=== PATIENT | female | born 1950 | race Caucasian/White ===

== ENCOUNTER 2016-12-12 02:17 | Emergency (ER) | payer MEDICARE, BC ==
[2016-12-12 02:29] VITALS: BP 125/75
--- NOTE | 2016-12-12 03:10 | EDM.PDOC ---
ED HPI GENERAL MEDICAL PROBLEM - General Chief Complaint: Diabetic Complaint Stated Complaint: BLOOD SUGAR HIGH Time Seen by Provider: 12/12/16 02:45 Source of Information: Reports: Patient, RN Notes Reviewed History Limitations: Reports: No Limitations - History of Present Illness INITIAL COMMENTS - FREE TEXT/NARRATIVE: Here with her Chief complaint: High blood sugar HPI 66-year-old female who was diagnosed with diabetes in 2008 has been on the pump for the last one and half years. Last A1c was 7.1%. She was well during the day and at 5 PM she did routine pump change including replacing insolent fringe the tubing and the needle and pineal. Since then her blood sugars been slowly climbing, 218 at 6 PM 395 at 1:24 AM and her last sugar at 2:50 AM was 468. She's had diarrhea 4 episodes a home since 5 PM and at least 2 episodes here in emergency. No nausea or vomiting No fever or chills No cough or cold symptoms. She feels that she's been eating and drinking normally during the day. She feels thirsty right now. Treatments TRAVEL COTA: Reports: Other (see below) Other Treatments TRAVEL COTA: insulin pump - Related Data Allergies Allergy/AdvReac Type Severity Reaction Status Date / Time bupropion [From Zyban] Allergy Wheezing Verified 12/12/16 02:49 clindamycin [From Cleocin] Allergy Wheezing Verified 12/12/16 02:48 erythromycin base Allergy Rash Verified 12/12/16 02:48 lansoprazole [From Prevacid] Allergy Nausea Verified 12/12/16 02:48 Penicillins Allergy Rash Verified 12/12/16 02:48 Sulfa (Sulfonamide Allergy Rash Verified 12/12/16 02:48 Antibiotics) varenicline [From Chantix] Allergy Hives Verified 12/12/16 02:48 Home Meds: Home Meds Aspirin [Halfprin] 81 mg PO DAILY 12/12/16 [History] Calcium Citrate/Vitamin D3 [Calcium Citrate - Vit D Tablet] 1 each PO DAILY [History] Cholecalciferol (Vitamin D3) [Vitamin D3] 1,000 unit PO DAILY 12/12/16 [History] Insulin Aspart [NovoLOG] 100 unit SUBCUT ASDIRECTED 12/12/16 [History] Insulin Aspart [NovoLOG] 100 unit SUBCUT ASDIRECTED 12/12/16 [History] Insulin Glargine,Hum.Rec.Anlog [Lantus Solostar] 100 unit SQ ASDIRECTED [History] L.acidoph,Paracasei, B.lactis [Probiotic] 1 each PO DAILY 12/12/16 [History] Lisinopril [Prinivil] 5 mg PO DAILY 12/12/16 [History] Olopatadine HCl [Patanol] 1 drop EYEBOTH BID 12/12/16 [History] Polyethylene Glycol 3350 [MiraLAX] 17 gm PO DAILY 12/12/16 [History] Ubidecarenone [Coenzyme Q-10] 200 mg PO DAILY 12/12/16 [History] atorvaSTATin [Lipitor] 40 mg PO BEDTIME 12/12/16 [History] metFORMIN [Glucophage] 1,000 mg PO BIDMEALS 12/12/16 [History] Past Medical History HEENT History: Reports: Hard of Hearing, Impaired Vision, Other (See Below) Other HEENT History: Wearing hearing aids. Cardiovascular History: Reports: High Cholesterol, Hypertension Gastrointestinal History: Reports: Other (See Below) Other Gastrointestinal History: Gastroparesis Musculoskeletal History: Reports: Osteoporosis Endocrine/Metabolic History: Reports: Diabetes, Type I, Hypothyroidism, Other ( See Below) Other Endocrine/Metabolic History: On insulin pump Oncologic (Cancer) History: Reports: Breast, Uterine - Infectious Disease History Infectious Disease History: Reports: Chicken Pox - Past Surgical History Cardiovascular Surgical History: Reports: None GI Surgical History: Reports: None Female Surgical History: Reports: Hysterectomy, Mastectomy Oncologic Surgical History: Reports: Mastectomy, Other (See Below) Other Oncologic Surgeries/Procedures: left side breast Social & Family History - Tobacco Use Smoking Status *Q: Current Every Day Smoker Years of Tobacco use: 46 Packs/Tins Daily: 0.5 Second Hand Smoke Exposure: No - Caffeine Use Caffeine Use: Reports: Coffee - Recreational Drug Use Recreational Drug Use: No ED ROS GENERAL - Review of Systems Review Of Systems: See Below Constitutional: Reports: Malaise, Other (First he). Denies: Fever, Chills, Weakness, Decreased Appetite HEENT: Reports: No Symptoms Respiratory: Reports: No Symptoms Cardiovascular: Reports: No Symptoms Endocrine: Reports: High Glucose GI/Abdominal: Reports: Diarrhea. Denies: Abdominal Pain, Nausea, Vomiting : Reports: No Symptoms Musculoskeletal: Reports: No Symptoms Skin: Reports: No Symptoms Neurological: Reports: No Symptoms Psychiatric: Reports: Anxiety Hematologic/Lymphatic: Reports: No Symptoms Immunologic: Reports: No Symptoms ED EXAM GENERAL NO PERIP PULSE - Physical Exam Exam: See Below Exam Limited By: No Limitations General Appearance: Alert, Anxious, Moderate Distress, Other (Will) Eye Exam: Bilateral Eye: Normal Inspection Respiratory/Chest: No Respiratory Distress, No Accessory Muscle Use (I) Cardiovascular: Normal Peripheral Pulses, Regular Rate, Rhythm, Tachycardia Extremities: Normal Inspection Neurological: Alert, Oriented, No Motor/Sensory Deficits Skin Exam: Warm, Dry Lymphatic: No Adenopathy Course - Vital Signs Last Recorded V/S: Last Vital Signs Temp 36.5 C 12/12/16 02:26 Pulse 110 H 12/12/16 02:26 Resp 16 12/12/16 02:26 BP 125/75 12/12/16 02:26 Pulse Ox 98 12/12/16 02:26 - Orders/Labs/Meds Meds: Medications Discontinued Medications Generic Name Dose Route Start Last Admin Trade Name Patricio PRN Reason Stop Dose Admin Insulin Aspart 10 unit 12/12/16 03:43 12/12/16 03:55 Novolog SUBCUT 12/12/16 03:44 10 units ONETIME ONE Administration - Re-Assessments/Exams Free Text/Narrative Re-Assessment/Exam: 12/12/16 03:10 66-year-old female with diabetes experiencing high blood sugars night. This may be do to him problem or due to the fact she has diarrhea which may well be infectious. She has given herself a bolus 3 AM of 5.4 units 12/12/16 03:44 Blood sugar dropped low but it return to 468 The pump has not showing an occlusive pattern Patient states sometimes and use it doesn't work as well as other sites Ordered a dose of 10 units NovoLog subcutaneous now 12/12/16 04:34 Blood sugar remains over 400, her meter compared favorably with our meter She has been drinking water well Options are started IV and give her fluids and insulin that way She would prefer to go home Return to emergency if vomiting or fever Departure - Departure Time of Disposition: 04:31 Disposition: Home, Self-Care 01 Condition: good Clinical Impression: Acute diarrhea, Elevated blood sugar - Discharge Information Instructions: Hyperglycemia Referrals: Jose Thapa MD [Primary Care Provider] - Forms: ED Department Discharge Additional Instructions: continue drinking plenty of fluids to make up for fluids lost because of lack of appetite and some diarrhea You'll need to increase your insulin while you are sick in your blood sugars are high Return to emergency if you start having vomiting, high fever, difficulty walking , or becoming more ill
[2016-12-12] MEDS ORDERED: Insulin Aspart 100 Units/ML 3 ML Pen SUBCUT ONE (03:43)
== END 2016-12-12 04:43 | disposition home or self-care (01) ==
LOC: JP.ED 02:17
DX: E10.9 Type 1 diabetes mellitus without complications (principal); R19.7 Diarrhea, unspecified; E03.9 Hypothyroidism, unspecified; E78.00 Pure hypercholesterolemia, unspecified; F17.210 Nicotine dependence, cigarettes, uncomplicated; Z90.89 Acquired absence of other organs; Z79.4 Long term (current) use of insulin; Z79.899 Other long term (current) drug therapy; Z79.82 Long term (current) use of aspirin; Z79.84 Long term (current) use of oral hypoglycemic drugs; Z88.1 Allergy status to other antibiotic agents; Z88.2 Allergy status to sulfonamides; Z88.0 Allergy status to penicillin; Z88.8 Allergy status to other drugs, medicaments and biological substances
CPT/HCPCS: 82962; 99284; A9270; 99283

== ENCOUNTER 2016-12-13 08:22 | Inpatient (IN) | payer MEDICARE, BC ==
[2016-12-13] MEDS ORDERED: Sodium Chloride 0.9% 10 ML Syringe FLUSH PRN ×2 (09:18→14:47)
[2016-12-13] MEDS ORDERED: Ondansetron 4 MG/2 ML SDV IVPUSH ONE (09:18)
--- NOTE | 2016-12-13 09:26 | EDM.PDOC ---
ED HPI GENERAL MEDICAL PROBLEM - General Chief Complaint: Diabetic Complaint Stated Complaint: BLOOD SUGARS Time Seen by Provider: 12/13/16 09:11 Source of Information: Reports: Patient, RN Notes Reviewed History Limitations: Reports: No Limitations - History of Present Illness INITIAL COMMENTS - FREE TEXT/NARRATIVE: 66-year-old female presents emergency department day complaint of elevated blood sugars and shaky feeling, she has a known history of diabetes mellitus type 1 has had difficulty with controlling blood sugars in the past she states for this particular event has been going on for the last 3 days she is on an insulin pump using a total of 18 units in the pump with 18 units with meals. Last blood sugar was 450 at home she denies any fevers does complain of nausea and vomiting had diarrhea for the past 2 days it seems to have resolved today. No shortness of breath or chest pain no cough Abdominal Pain Score (Numeric/FACES): 3 - Related Data Allergies Allergy/AdvReac Type Severity Reaction Status Date / Time bupropion [From Zyban] Allergy Wheezing Verified 12/13/16 08:40 clindamycin [From Cleocin] Allergy Wheezing Verified 12/13/16 08:40 erythromycin base Allergy Rash Verified 12/13/16 08:40 Penicillins Allergy Rash Verified 12/13/16 08:40 Sulfa (Sulfonamide Allergy Rash Verified 12/13/16 08:40 Antibiotics) varenicline [From Chantix] Allergy Hives Verified 12/13/16 08:40 lansoprazole [From Prevacid] AdvReac Nausea Verified 12/13/16 08:40 Home Meds: Home Meds Aspirin [Halfprin] 81 mg PO DAILY 12/12/16 [History] Cholecalciferol (Vitamin D3) [Vitamin D3] 1,000 unit PO DAILY 12/12/16 [History] Insulin Aspart [NovoLOG] 100 unit SUBCUT ASDIRECTED 12/12/16 [History] Insulin Aspart [NovoLOG] 100 unit SUBCUT ASDIRECTED 12/12/16 [History] Lisinopril [Prinivil] 5 mg PO DAILY 12/12/16 [History] Olopatadine HCl [Patanol] 1 drop EYEBOTH BID 12/12/16 [History] Polyethylene Glycol 3350 [MiraLAX] 17 gm PO DAILY 12/12/16 [History] Ubidecarenone [Coenzyme Q-10] 200 mg PO DAILY 12/12/16 [History] atorvaSTATin [Lipitor] 40 mg PO BEDTIME 12/12/16 [History] metFORMIN [Glucophage] 1,000 mg PO BIDMEALS 12/12/16 [History] Past Medical History HEENT History: Reports: Hard of Hearing, Impaired Vision, Other (See Below) Other HEENT History: Wearing hearing aids. Cardiovascular History: Reports: High Cholesterol, Hypertension Gastrointestinal History: Reports: Other (See Below) Other Gastrointestinal History: Gastroparesis [employer] History: Reports: Musculoskeletal History: Reports: Osteoporosis Endocrine/Metabolic History: Reports: Diabetes, Type I, Hypothyroidism, Other ( See Below) Other Endocrine/Metabolic History: On insulin pump Oncologic (Cancer) History: Reports: Breast, Uterine - Infectious Disease History Infectious Disease History: Reports: Chicken Pox, Measles, Mumps, Shingles - Past Surgical History Cardiovascular Surgical History: Reports: None GI Surgical History: Reports: None Female Surgical History: Reports: Hysterectomy, Mastectomy Oncologic Surgical History: Reports: Mastectomy, Other (See Below) Other Oncologic Surgeries/Procedures: left side breast Social & Family History - Tobacco Use Smoking Status *Q: Current Every Day Smoker Years of Tobacco use: 40 Packs/Tins Daily: 0.5 Used Tobacco, but Quit: No Second Hand Smoke Exposure: No - Caffeine Use Caffeine Use: Reports: Coffee - Recreational Drug Use Recreational Drug Use: No ED ROS GENERAL - Review of Systems Review Of Systems: See Below Constitutional: Denies: Fever, Chills HEENT: Reports: No Symptoms Respiratory: Reports: No Symptoms Cardiovascular: Reports: No Symptoms Endocrine: Reports: High Glucose GI/Abdominal: Reports: Diarrhea, Nausea, Vomiting. Denies: Abdominal Pain : Reports: No Symptoms Musculoskeletal: Reports: No Symptoms Skin: Reports: No Symptoms Neurological: Reports: No Symptoms Psychiatric: Reports: No Symptoms ED EXAM GENERAL NO PERIP PULSE - Physical Exam Exam: See Below Text/Narrative:: General: Female, mild distress, alert and oriented x3 HEENT: head is atraumatic normocephalic, eyes pupils equal round reactive to light, sclera clear no conjunctivitis appreciated. Ears hearing aids in place bilaterally. Nose no septal deviation, nares are clear, no blood present. Mouth mucosa is moist and pink no erythema or exudate noted in soft palate, tongue is midline uvula is midline, dentition is intact. Neck: Supple no thyromegaly no tracheal deviation. Nodes: Cervical nodes subclavicular nodes nontender no palpable lymphadenopathy noted. Lungs: clear to auscultation bilaterally with symmetrical respirations, no adventitious noise appreciated. CV: Regular rate and rhythm S1 and S2 appreciated no murmurs rubs or gallops noted. Abdomen: Soft, nontender, no palpable masses or organomegaly appreciated, no distention no guarding bowel sounds are present, . Neuro: Cranial nerves II through XII grossly intact Skin: Warm and dry, intact Extremities: No lower extremity edema appreciated, . Course - Vital Signs Last Recorded V/S: Last Vital Signs Temp 95.5 F 12/13/16 08:54 Pulse 102 H 12/13/16 08:54 Resp 14 12/13/16 08:54 BP 142/69 H 12/13/16 08:54 Pulse Ox 99 12/13/16 08:54 - Orders/Labs/Meds Orders: Active Orders 24 hr Category Date Time Status Peripheral IV Care [RC] . DIRECTED Care 12/13/16 09:19 Active Chest 2V [CR] Stat Exams 12/13/16 10:33 Ordered CLOSTRIDIUM DIFFICILE BY PCR [RM] Stat Lab 12/13/16 10:33 Uncollected CULTURE BLOOD [BC] Urgent Lab 12/13/16 10:37 Received CULTURE BLOOD [BC] Urgent Lab 12/13/16 10:43 Received UA W/MICROSCOPIC [URIN] Urgent Lab 12/13/16 09:18 Uncollected Insulin Regular, Human [NovoLIN R] 100 unit Med 12/13/16 10:15 Active Sodium Chloride 0.9% [Normal Saline] 100 ml SUBCUT TITRATE Sodium Chloride 0.9% [Normal Saline] 1,000 ml Med 12/13/16 09:30 Active IV ASDIRECTED Sodium Chloride 0.9% [Normal Saline] 1,000 ml Med 12/13/16 10:45 Active IV ASDIRECTED Sodium Chloride 0.9% [Saline Flush] Med 12/13/16 09:18 Active 10 ml FLUSH ASDIRECTED PRN Blood Culture x2 Reflex Set [OM.PC] Urgent Oth 12/13/16 10:33 Ordered ED Antiemetic Medication Reflex [OM.PC] Click to Edit Oth 12/13/16 09:18 Ordered Peripheral IV Insertion Adult [OM.PC] Stat Oth 12/13/16 09:18 Ordered Medication Orders Sodium Chloride (Normal Saline) 1,000 mls @ 999 mls/hr IV ASDIRECTED ALICIA Last Admin: 12/13/16 09:32 Dose: 999 mls/hr Insulin Human Regular 100 unit (/ Sodium Chloride) 101 mls @ 7.07 mls/hr SUBCUT TITRATE ALICIA; 7 UNITS/HR PRN Reason: Protocol Sodium Chloride (Normal Saline) 1,000 mls @ 500 mls/hr IV ASDIRECTED ALICIA Sodium Chloride (Saline Flush) 10 ml FLUSH ASDIRECTED PRN PRN Reason: Keep Vein Open Last Admin: 12/13/16 09:37 Dose: 10 ml Labs: Laboratory Tests 12/13/16 12/13/16 12/13/16 Range/Units 09:20 09:30 09:30 WBC 17.5 H (4.5-11.0) K/uL RBC 4.84 (3.30-5.50) M/uL Hgb 14.2 (12.0-15.0) g/dL Hct 41.2 (36.0-48.0) % MCV 85 (80-98) fL MCH 29 (27-31) pg MCHC 35 (32-36) % Plt Count 404 H (150-400) K/uL Neut % (Auto) 82 H (36-66) % Lymph % (Auto) 12 L (24-44) % [place] % (Auto) 6 (2-6) % Eos % (Auto) 0 L (2-4) % Baso % (Auto) 0 (0-1) % Puncture Site Rt radial ABG pH 7.379 (7.350-7.450) ABG pCO2 21.9 L (35.0-42.0) mmHg ABG pO2 102.0 H (75.0-100.0) mmHg ABG HCO3 12.6 L (22.0-26.0) mmol/L ABG Total CO2 11.2 L (21.0-25.0) mmol/L ABG O2 Saturation 97.9 (95.0-98.0) % ABG O2 Content 18.4 (15.0-23.0) %vol ABG Base Excess -10.4 mm/L ABG Hemoglobin 14.2 (12.0-16.0) g/dL ABG Oxyhemoglobin 91.6 % ABG Carboxyhemoglobin 5.5 H (0.0-1.6) % ABG Methemoglobin 0.9 % Raymond Test Passed O2 Delivery Device Room air Sodium 125 L (140-148) mmol/L Potassium 4.5 (3.6-5.2) mmol/L Chloride 93 L (100-108) mmol/L Carbon Dioxide 15 L (21-32) mmol/L Anion Gap 21.5 H (5.0-14.0) mmol/L BUN 21 H (7-18) mg/dL Creatinine 1.0 (0.6-1.0) mg/dL Est Cr Clr Drug Dosing 39.21 mL/min Estimated GFR (MDRD) 55 L (>60) Glucose 319 H (74-106) mg/dL Lactic Acid (0.4-2.0) mmol/L Calcium 8.4 L (8.5-10.1) mg/dL Total Bilirubin 0.7 (0.2-1.0) mg/dL AST 40 H (15-37) U/L ALT 111 H (12-78) U/L Alkaline Phosphatase 106 (46-116) U/L Total Protein 7.6 (6.4-8.2) g/dL Albumin 3.8 (3.4-5.0) g/dL Globulin 3.8 H (2.3-3.5) g/dL Albumin/Globulin Ratio 1.0 L (1.2-2.2) Lipase (73-393) U/L Ketones (NEGATIVE) 12/13/16 12/13/16 12/13/16 Range/Units 09:30 09:30 09:30 WBC (4.5-11.0) K/uL RBC (3.30-5.50) M/uL Hgb (12.0-15.0) g/dL Hct (36.0-48.0) % MCV (80-98) fL MCH (27-31) pg MCHC (32-36) % Plt Count (150-400) K/uL Neut % (Auto) (36-66) % Lymph % (Auto) (24-44) % [place] % (Auto) (2-6) % Eos % (Auto) (2-4) % Baso % (Auto) (0-1) % Puncture Site ABG pH (7.350-7.450) ABG pCO2 (35.0-42.0) mmHg ABG pO2 (75.0-100.0) mmHg ABG HCO3 (22.0-26.0) mmol/L ABG Total CO2 (21.0-25.0) mmol/L ABG O2 Saturation (95.0-98.0) % ABG O2 Content (15.0-23.0) %vol ABG Base Excess mm/L ABG Hemoglobin (12.0-16.0) g/dL ABG Oxyhemoglobin % ABG Carboxyhemoglobin (0.0-1.6) % ABG Methemoglobin % Raymond Test O2 Delivery Device Sodium (140-148) mmol/L Potassium (3.6-5.2) mmol/L Chloride (100-108) mmol/L Carbon Dioxide (21-32) mmol/L Anion Gap (5.0-14.0) mmol/L BUN (7-18) mg/dL Creatinine (0.6-1.0) mg/dL Est Cr Clr Drug Dosing mL/min Estimated GFR (MDRD) (>60) Glucose (74-106) mg/dL Lactic Acid 1.3 (0.4-2.0) mmol/L Calcium (8.5-10.1) mg/dL Total Bilirubin (0.2-1.0) mg/dL AST (15-37) U/L ALT (12-78) U/L Alkaline Phosphatase (46-116) U/L Total Protein (6.4-8.2) g/dL Albumin (3.4-5.0) g/dL Globulin (2.3-3.5) g/dL Albumin/Globulin Ratio (1.2-2.2) Lipase 199 (73-393) U/L Ketones Small H (NEGATIVE) Meds: Medications Generic Name Dose Route Start Last Admin Trade Name Freq PRN Reason Stop Dose Admin Sodium Chloride 1,000 mls @ 999 mls/hr 12/13/16 09:30 12/13/16 09:32 Normal Saline IV 999 mls/hr ASDIRECTED ALICIA Administration Insulin Human Regular 100 unit 101 mls @ 7.07 mls/hr 12/13/16 10:15 / Sodium Chloride SUBCUT TITRATE [facility] Protocol 7 UNITS/HR Sodium Chloride 1,000 mls @ 500 mls/hr 12/13/16 10:45 Normal Saline IV ASDIRECTED ALICIA Sodium Chloride 10 ml 12/13/16 09:18 12/13/16 09:37 Saline Flush FLUSH 10 ml ASDIRECTED PRN Administration Keep Vein Open Discontinued Medications Generic Name Dose Route Start Last Admin Trade Name Freq PRN Reason Stop Dose Admin Ondansetron HCl 4 mg 12/13/16 09:18 12/13/16 09:33 Zofran IVPUSH 12/13/16 09:19 4 mg ONETIME ONE Administration Departure - Departure Time of Disposition: 10:49 Disposition: Admitted As Inpatient 65 Clinical Impression: Diabetic ketoacidosis associated with type 1 diabetes mellitus Qualifiers: Diabetes mellitus complication detail: without coma Qualified Code(s): E10.10 - Type 1 diabetes mellitus with ketoacidosis without coma - Discharge Information Forms: ED Department Discharge - My Orders Last 24 Hours: My Active Orders 12/13/16 09:18 UA W/MICROSCOPIC [URIN] Urgent Sodium Chloride 0.9% [Saline Flush] 10 ml FLUSH ASDIRECTED PRN ED Antiemetic Medication Reflex [OM.PC] Click to Edit Peripheral IV Insertion Adult [OM.PC] Stat 12/13/16 09:19 Peripheral IV Care [RC] . DIRECTED 12/13/16 09:30 Sodium Chloride 0.9% [Normal Saline] 1,000 ml IV ASDIRECTED 12/13/16 10:15 Insulin Regular, Human [NovoLIN R] 100 unit Sodium Chloride 0.9% [Normal Saline] 100 ml SUBCUT TITRATE 12/13/16 10:33 Chest 2V [CR] Stat CLOSTRIDIUM DIFFICILE BY PCR [RM] Stat Blood Culture x2 Reflex Set [OM.PC] Urgent 12/13/16 10:37 CULTURE BLOOD [BC] Urgent 12/13/16 10:43 CULTURE BLOOD [BC] Urgent 12/13/16 10:45 Sodium Chloride 0.9% [Normal Saline] 1,000 ml IV ASDIRECTED - Assessment/Plan Last 24 Hours: My Active Orders 12/13/16 09:18 UA W/MICROSCOPIC [URIN] Urgent Sodium Chloride 0.9% [Saline Flush] 10 ml FLUSH ASDIRECTED PRN ED Antiemetic Medication Reflex [OM.PC] Click to Edit Peripheral IV Insertion Adult [OM.PC] Stat 12/13/16 09:19 Peripheral IV Care [RC] . DIRECTED 12/13/16 09:30 Sodium Chloride 0.9% [Normal Saline] 1,000 ml IV ASDIRECTED 12/13/16 10:15 Insulin Regular, Human [NovoLIN R] 100 unit Sodium Chloride 0.9% [Normal Saline] 100 ml SUBCUT TITRATE 12/13/16 10:33 Chest 2V [CR] Stat CLOSTRIDIUM DIFFICILE BY PCR [RM] Stat Blood Culture x2 Reflex Set [OM.PC] Urgent 12/13/16 10:37 CULTURE BLOOD [BC] Urgent 12/13/16 10:43 CULTURE BLOOD [BC] Urgent 12/13/16 10:45 Sodium Chloride 0.9% [Normal Saline] 1,000 ml IV ASDIRECTED Plan: Assessment Acuity = acute Site and laterality = diabetic ketoacidosis complicated patient with known history of diabetes mellitus type 1, hypertension, dyslipidemia hypothyroidism Etiology = unclear etiology suspicious for infectious process Manifestations = hyperglycemia, tremors Location of injury = home Lab values = WBC elevated at 17.5 consistent leukocytosis, platelets elevated at 404 consistent with thrombocytosis ABG reveals pH of 7.38 PCO2 21.9 a PO2 of 102 and a bicarbonate of 12.6 consistent with a metabolic acidosis and respiratory alkalosis sodium low at 125 corrected sodium at 129 consistent hyponatremia CO2 low at 15 anion gap elevated at 21.5 glucose elevated at 319 consistent hyperglycemia AST elevated at 40 ALT elevated 111 consistent with elevated liver enzymes positive ketones in the blood, chest x-ray, blood cultures, urine pending Plan Discussed case with hospitalist extraction operator he agreed to come and evaluate the patient ED for admission, she has been given 2 L of fluid started on an insulin drip while in the ED Patient was in agreement with the plan all questions were answered This note was dictated using [employer] voice recognition software please call with any questions.
[2016-12-13] MEDS ORDERED: Sodium Chloride 0.9% 1,000 ML IV SCH ×2 (09:30→10:45)
--- NOTE | 2016-12-13 11:01 | CR ---
Heart size within normal limits. Pulmonary vasculature within normal limits. No focal consolidation. Postsurgical change left axilla.
[2016-12-13] MEDS ORDERED: INSULIN REGULAR IV ONE ×2 (11:51)
[2016-12-13] MEDS ORDERED: SODIUM CHLORIDE 0.9% IV ONE ×2 (11:51)
[2016-12-13] MEDS ORDERED: HUMAN IV ONE ×2 (11:51)
[2016-12-13] MEDS ORDERED: STERILE WATER IV PRN (14:47)
[2016-12-13] MEDS ORDERED: Ondansetron 4 MG/2 ML SDV IV PRN (14:47)
[2016-12-13] MEDS ORDERED: Sodium Chloride 0.9% 2,000 ML IV PRN (14:47)
[2016-12-13] MEDS ORDERED: 50% Dextrose in Water 50 ML Syringe IVPUSH PRN (14:47)
[2016-12-13] MEDS ORDERED: Acetaminophen 325 MG Tab PO PRN (14:47)
[2016-12-13] MEDS ORDERED: Potassium Chloride 10% 20 MEQ/15 ML Soln 15 ML UD Cup PO PRN ×2 (14:47)
[2016-12-13] MEDS ORDERED: POTASSIUM CHLORIDE IV PRN (14:47)
[2016-12-13] MEDS ORDERED: Sodium Phosphate 60 MMOLE in Sodium Chloride 0.9% 250 ML IV PRN (14:47)
[2016-12-13] MEDS ORDERED: oxyCODONE 5 MG Tab PO PRN (14:47)
[2016-12-13] MEDS ORDERED: Magnesium Sulfate/Water 50 ML IV PRN (14:47)
[2016-12-13] MEDS ORDERED: Potassium Chloride 20 MEQ in Premix Bag 1 BAG IV PRN (15:30)
--- NOTE | 2016-12-13 15:38 | PCM.HP ---
H&P History of Present Illness - General Admit Problem/Dx: Admission Diagnosis/Problem Admission Diagnosis/Problem Diabetic ketoacidosis Source of Information: Patient, Family, Provider, RN Notes Reviewed History Limitations: Reports: No Limitations - History of Present Illness Initial Comments - Free Text/Narative: This patient is a 66-year-old woman with a known history of type 1 diabetes mellitus. She currently uses an insulins pump for management of her diabetes and reports a control had been fairly good up until 2 days ago. Over the past 2 days his developed diarrhea associated with nausea and vomiting. She's had 2 episodes of chills but denies any obvious fever. On evaluation emergency room Department white blood cell count is elevated but there is no obvious source of infection identified on evaluation. Glucose levels were elevated in the 300 range and associated with an elevated anion gap and decrease in her CO2 level. She is felt to have early diabetic ketoacidosis and has been started on IV insulin. Abdominal Pain Score (Numeric/FACES): 3 - Related Data Allergies/Adverse Reactions: Allergies Allergy/AdvReac Type Severity Reaction Status Date / Time bupropion [From Zyban] Allergy Wheezing Verified 12/13/16 08:40 clindamycin [From Cleocin] Allergy Wheezing Verified 12/13/16 08:40 erythromycin base Allergy Rash Verified 12/13/16 08:40 Penicillins Allergy Rash Verified 12/13/16 08:40 Sulfa (Sulfonamide Allergy Rash Verified 12/13/16 08:40 Antibiotics) varenicline [From Chantix] Allergy Hives Verified 12/13/16 08:40 lansoprazole [From Prevacid] AdvReac Nausea Verified 12/13/16 08:40 Home Medications: Home Meds Aspirin [Halfprin] 81 mg PO DAILY 12/12/16 [History] Cholecalciferol (Vitamin D3) [Vitamin D3] 1,000 unit PO DAILY 12/12/16 [History] Insulin Aspart [NovoLOG] 100 unit SUBCUT ASDIRECTED 12/12/16 [History] Insulin Aspart [NovoLOG] 100 unit SUBCUT ASDIRECTED 12/12/16 [History] Lisinopril [Prinivil] 5 mg PO DAILY 12/12/16 [History] Olopatadine HCl [Patanol] 1 drop EYEBOTH BID 12/12/16 [History] Polyethylene Glycol 3350 [MiraLAX] 17 gm PO DAILY 12/12/16 [History] Ubidecarenone [Coenzyme Q-10] 200 mg PO DAILY 12/12/16 [History] atorvaSTATin [Lipitor] 40 mg PO BEDTIME 12/12/16 [History] metFORMIN [Glucophage] 1,000 mg PO BIDMEALS 12/12/16 [History] Past Medical History HEENT History: Reports: Hard of Hearing, Impaired Vision, Other (See Below) Other HEENT History: Wearing hearing aids. 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: Musculoskeletal History: Reports: Osteoporosis Endocrine/Metabolic History: Reports: Diabetes, Type I, Hypothyroidism, Other ( See Below) Other Endocrine/Metabolic History: On insulin pump Oncologic (Cancer) History: Reports: Breast, Uterine - Infectious Disease History Infectious Disease History: Reports: Chicken Pox, Measles, Mumps, Shingles - Past Surgical History Cardiovascular Surgical History: Reports: None GI Surgical History: Reports: None Female Surgical History: Reports: Hysterectomy, Mastectomy Oncologic Surgical History: Reports: Mastectomy, Other (See Below) Other Oncologic Surgeries/Procedures: left side breast Social & Family History - Family History Family Medical History: Noncontributory - Tobacco Use Smoking Status *Q: Current Every Day Smoker Years of Tobacco use: 40 Packs/Tins Daily: 0.5 Used Tobacco, but Quit: No Second Hand Smoke Exposure: No - Caffeine Use Caffeine Use: Reports: Coffee - Recreational Drug Use Recreational Drug Use: No H&P Review of Systems - Review of Systems: Review Of Systems: See Below General: Reports: Chills. Denies: Fever, Weakness HEENT: Reports: No Symptoms Pulmonary: Reports: No Symptoms Cardiovascular: Reports: No Symptoms Gastrointestinal: Reports: Diarrhea, Nausea, Vomiting. Denies: Abdominal Pain, Black Stool, Bloody Stool, Constipation, Distension Genitourinary: Reports: No Symptoms Musculoskeletal: Reports: No Symptoms Skin: Reports: No Symptoms Psychiatric: Reports: No Symptoms Neurological: Reports: No Symptoms Hematologic/Lymphatic: Reports: No Symptoms Immunologic: Reports: No Symptoms Exam - Exam Exam: See Below - Vital Signs Vital Signs: Last Vital Signs Temp 98.2 F 12/13/16 12:53 Pulse 89 12/13/16 13:57 Resp 14 12/13/16 13:57 BP 135/60 05/26/17 13:57 Pulse Ox 98 12/13/16 13:57 Weight: 122 lb - Exam Quality Assessment: DVT Prophylaxis General: Alert, Oriented, Cooperative, Mild Distress HEENT: Conjunctiva Clear, EOMI, Hearing Intact, Mucosa Moist & [place], Normal Nasal Septum, Posterior Pharynx Clear, Pupils Equal, Pupils Reactive Neck: Supple, Trachea Midline, +2 Carotid Pulse wo Bruit Lungs: Clear to Auscultation, Normal Respiratory Effort Cardiovascular: Regular Rate, Regular Rhythm, Normal S1, Normal S2. No: Irregular Rhythm, Bradycardia, Tachycardia, Systolic Murmur, Diastolic Murmur Abdomen: Normal Bowel Sounds, Soft. No: Organomegaly, Peritoneal Signs, Distention, Guarding, Rigidity, Rebound, Tenderness Back Exam: Normal Inspection, Full Range of Motion, NT Extremities: 3, Normal Inspection, 10 Skin: Warm, Dry, Intact Neurological: Cranial Nerves Intact, Strength Equal Bilateral, Normal Speech, Normal Tone. No: Focal Deficit Neuro Extensive - Mental Status: Alert, Oriented x3, Normal Mood/Affect, Normal Cognition, Memory Intact - Patient Data Lab Results last 24 hrs: Laboratory Results - last 24 hr 12/13/16 Range/Units 14:47 Sodium 131 L (140-148) mmol/L Potassium 4.9 (3.6-5.2) mmol/L Chloride 100 (100-108) mmol/L Carbon Dioxide 19 L (21-32) mmol/L Anion Gap 16.9 H (5.0-14.0) mmol/L BUN 14 (7-18) mg/dL Creatinine 0.9 (0.6-1.0) mg/dL Est Cr Clr Drug Dosing 43.57 mL/min Estimated GFR (MDRD) > 60 (>60) Glucose 287 H (74-106) mg/dL Calcium 7.3 L (8.5-10.1) mg/dL Phosphorus 2.8 (2.5-4.9) mg/dL Magnesium 1.6 L (1.8-2.4) mg/dL Result Diagrams: 12/13/16 09:30 12/13/16 14:47 *Q Meaningful Use (ADM) - VTE *Q VTE Criteria *Q: - VTE Risk Assess *Q Each Risk Factor Represents 1 Point: None Total Score 1 Point Risk Factors: 0 Each Risk Factor Represents 2 Points: Age 60 - 74 Years, Previous Malignancy Total Score 2 Point Risk Factors: 4 Each Risk Factor Represents 3 Points: None Total Score 3 Point Risk Factors: 0 Each Risk Factor Represents 5 Points: None Total Score 5 Point Risk Factors: 0 Venous Thromboembolism Risk Factor Score *Q: 4 - Stroke *Q Stroke Criteria *Q: - AMI *Q AMI Criteria *Q: Problem List Initiated/Reviewed/Updated: Yes Orders Last 24hrs: Active Orders 24 hr Category Date Time Status Diabetes Education [RC] Click to Edit Care 12/13/16 14:47 Active Intake and Output [RC] QSHIFT Care 12/13/16 14:47 Active Notify Provider Laboratory Res [RC] ASDIRECTED Care 12/13/16 14:47 Active Notify Provider Laboratory Res [RC] ASDIRECTED Care 12/13/16 14:47 Active Notify Provider Laboratory Res [RC] ASDIRECTED Care 12/13/16 14:47 Active Notify Provider Laboratory Res [RC] ASDIRECTED Care 12/13/16 14:47 Active Oxygen Therapy [RC] PRN Care 12/13/16 14:47 Active Peripheral IV Care [RC] . DIRECTED Care 12/13/16 14:47 Active Up With Assistance [RC] ASDIRECTED Care 12/13/16 14:47 Active VTE/DVT Education [RC] Per Unit Routine Care 12/13/16 14:47 Active Vital Signs [RC] Q1H Care 12/13/16 14:47 Active Consult to Diabetic Nurse Specialist [CONS] Urgent Cons 12/13/16 14:47 Active Consistent Carbohydrate Diet [DIET] Diet 12/13/16 Lunch Active BASIC METABOLIC PANEL,BMP [CHEM] AM Lab 12/14/16 05:11 Ordered BASIC METABOLIC PANEL,BMP [CHEM] Q4H Lab 12/13/16 18:47 Ordered BASIC METABOLIC PANEL,BMP [CHEM] Q4H Lab 12/13/16 22:47 Ordered BASIC METABOLIC PANEL,BMP [CHEM] Q4H Lab 12/14/16 02:47 Ordered BASIC METABOLIC PANEL,BMP [CHEM] Q4H Lab 12/14/16 06:47 Ordered BASIC METABOLIC PANEL,BMP [CHEM] Q4H Lab 12/14/16 10:47 Ordered CBC WITH AUTO DIFF [HEME] AM Lab 12/14/16 05:11 Ordered MAGNESIUM [CHEM] Q6H Lab 12/13/16 20:47 Ordered MAGNESIUM [CHEM] [address] 12/14/16 02:47 Ordered MAGNESIUM [CHEM] [facility] 12/14/16 08:47 Ordered PHOSPHORUS [CHEM] [address] 12/13/16 20:47 Ordered PHOSPHORUS [CHEM] [address] 12/14/16 02:47 Ordered PHOSPHORUS [CHEM] [address] 12/14/16 08:47 Ordered POTASSIUM,K [CHEM] [address] 12/13/16 16:47 Ordered POTASSIUM,K [CHEM] [address] 12/13/16 20:47 Ordered POTASSIUM,K [CHEM] [address] 12/14/16 00:47 Ordered POTASSIUM,K [CHEM] [address] 12/14/16 02:47 Ordered POTASSIUM,K [CHEM] [address] 12/14/16 04:47 Ordered POTASSIUM,K [CHEM] [address] 12/14/16 06:47 Ordered POTASSIUM,K [CHEM] [address] 12/14/16 08:47 Ordered POTASSIUM,K [CHEM] [address] 12/14/16 10:47 Ordered POTASSIUM,K [CHEM] [address] 12/14/16 12:47 Ordered Acetaminophen [Tylenol] [facility] 12/13/16 14:47 Active 650 mg PO Q4H PRN Dextrose 5%-0.45% NaCl [Dextrose 5%-1/2 NS] 1,000 ml [facility] 12/13/16 14:47 Active IV .CONTINUOUS Dextrose 50% in Water [facility] 12/13/16 14:47 Active 50 ml IVPUSH ONETIME PRN Enoxaparin [Lovenox] Med 12/13/16 17:00 Active 40 mg SUBCUT Q24H Insulin Regular, Human [NovoLIN R] 100 unit Med 12/13/16 14:47 Active Sodium Chloride 0.9% [Normal Saline] 100 ml IV TITRATE Magnesium Sulfate/Water [Magnesium Sulfate 2 GM in Med 12/13/16 14:47 Active Water 50 ML] 50 ml IV ASDIRECTED Ondansetron [Zofran] Med 12/13/16 14:47 Active 4 mg IV Q4H PRN Potassium Chloride [KCL 20 MEQ in Water 100 ML] 20 meq Med 12/13/16 15:30 Active Premix Bag 1 bag IV ASDIRECTED Potassium Chloride [Potassium Chloride Solution] Med 12/13/16 14:47 Ordered 20 meq PO NOW PRN Potassium Chloride [Potassium Chloride Solution] Med 12/13/16 14:47 Ordered 40 meq PO NOW PRN Potassium Chloride [Potassium Chloride Solution] Med 12/13/16 14:47 Ordered 40 meq PO Q2H PRN Sodium Chloride 0.9% [Normal Saline] 2,000 ml Med 12/13/16 14:47 Ordered IV .CONTINUOUS Sodium Chloride 0.9% [Saline Flush] Med 12/13/16 14:47 Active 10 ml FLUSH ASDIRECTED PRN Sodium Phosphate 60 mmole Med 12/13/16 14:47 Ordered Sodium Chloride 0.9% [Normal Saline] 250 ml IV ONETIME atorvaSTATin [Lipitor] Med 12/13/16 21:00 Active 40 mg PO BEDTIME oxyCODONE Med 12/13/16 14:47 Active 5 mg PO Q4H PRN Medication Continuation Instructions [OM.PC] ASDIRECTED Oth 12/13/16 14:47 Ordered Peripheral IV Insertion Adult [OM.PC] Routine Oth 12/13/16 14:47 Ordered Resuscitation Status Routine Resus Stat 12/13/16 14:15 Ordered Medication Orders Acetaminophen (Tylenol) 650 mg PO Q4H PRN PRN Reason: Pain (Mild 1-3)/fever Aspirin (Halfprin) 81 mg PO DAILY [facility] Atorvastatin Calcium (Lipitor) 40 mg PO BEDTIME [facility] Dextrose/Water (Dextrose 50% In Water) 50 ml IVPUSH ONETIME PRN PRN Reason: Blood Glucose Enoxaparin Sodium (Lovenox) 40 mg SUBCUT Q24H [facility] Dextrose/Sodium Chloride (Dextrose 5%-1/2 Ns) 1,000 mls @ 150 mls/hr IV .CONTINUOUS PRN PRN Reason: Blood Glucose Insulin Human Regular 100 unit (/ Sodium Chloride) 101 mls @ 5.55 mls/hr IV TITRATE ALICIA; 0.1 UNIT/KG/HR PRN Reason: Protocol Magnesium Sulfate (Magnesium Sulfate 2 Gm In Water 50 Ml) 50 mls @ 25 mls/hr IV ASDIRECTED PRN PRN Reason: low magnesium Sodium Chloride (Normal Saline) 2,000 mls @ 500 mls/hr IV .CONTINUOUS PRN PRN Reason: Blood Glucose Sodium Phosphate 60 mmole/ (Sodium Chloride) 270 mls @ 62.5 mls/hr IV ONETIME PRN PRN Reason: Low phophorus Potassium Chloride 20 meq/ (Premix) 100 mls @ 50 mls/hr IV ASDIRECTED PRN PRN Reason: HYPOKALEMIA Lisinopril (Prinivil) 5 mg PO DAILY [facility] Olopatadine HCl (Patanol 0.1% Ophth Soln) ml EYEBOTH BID [facility] Ondansetron HCl (Zofran) 4 mg IV Q4H PRN PRN Reason: Nausea/Vomiting Oxycodone HCl (Oxycodone) 5 mg PO Q4H PRN PRN Reason: Pain (moderate 4-6) Potassium Chloride (Potassium Chloride Solution) 20 meq PO NOW PRN PRN Reason: Hypokalemia Potassium Chloride (Potassium Chloride Solution) 40 meq PO NOW PRN PRN Reason: Hypokalemia Potassium Chloride (Potassium Chloride Solution) 40 meq PO Q2H PRN PRN Reason: Hypokalemia Stop: 12/13/16 16:48 Sodium Chloride (Saline Flush) 10 ml FLUSH ASDIRECTED PRN PRN Reason: Keep Vein Open Assessment/Plan Comment:: ASSESSMENT AND PLAN EARLY DIABETIC KETOACIDOSIS-she's had nausea vomiting with diarrhea over the past 2 days, likely secondary to viral gastroenteritis. No other evidence of underlying infection has been identified thus far. -IV insulins per ketoacidosis protocol -IV fluids and electrolyte management per protocol -Hold use of insulin pump -Anticipate transition back to use of her insulin pump in a.m. -Every hour glucometers and regular laboratory studies VIRAL GASTROENTERITIS-by description symptoms seem to be improving by the time she presented to the emergency department -IV fluids for hydration -Antiemetic therapy as needed TYPE 1 DIABETES MELLITUS -Management of insulin as above MAINTENANCE ISSUES -DVT prophylaxis; Lovenox 40 mg subcutaneous daily -GI prophylaxis; not indicated -Esteves catheter; not indicated -Nutrition; consistent carb diet -Nicotine dependence; 14 mg nicotinic patch CODE STATUS-FULL CODE ADMISSION STATUS-patient will be admitted to inpatient status, expect at least a 2 night hospital stay for evaluation and management of problems as outlined above. At the time of this admission I do not reasonably expected evaluation and management of this problem will require more than a 96 hour hospital stay. DISPOSITION-anticipate discharge to home after the hospital stay. PRIMARY CARE PROVIDER-Dr. Thapa
[2016-12-13] MEDS: Nicotine 7 MG/24 Hr Patch TRDERM SCH (16:08)
[2016-12-13] MEDS ORDERED: Enoxaparin 40 MG/0.4 ML Syringe SUBCUT SCH (17:00)
[2016-12-13] MEDS: Dextrose 5%-0.45% NaCl 1,000 ML IV PRN (17:06)
[2016-12-13] MEDS: Potassium Chloride 10% 20 MEQ/15 ML Soln 15 ML UD Cup PO PRN ×2 (17:28→21:49)
[2016-12-13] MEDS: Ketotifen 0.025% Ophth Soln 5 ML Bottle EYEBOTH SCH (20:47)
[2016-12-13] MEDS ORDERED: atorvaSTATin 20 MG Tab PO SCH (21:00)
[2016-12-13] MEDS ORDERED: Olopatadine 0.1% Ophth Soln 5 ML Bottle EYEBOTH SCH (21:00)
[2016-12-13] MEDS ORDERED: Non-Formulary Medication 1 Each (Atorvastatin [Lipitor] 40 MG) PO SCH (21:00)
[2016-12-14] MEDS: Dextrose 5%-0.45% NaCl 1,000 ML IV PRN ×2 (00:05→06:27)
[2016-12-14] MEDS: Potassium Chloride 10% 20 MEQ/15 ML Soln 15 ML UD Cup PO PRN (07:40)
[2016-12-14] MEDS: Ketotifen 0.025% Ophth Soln 5 ML Bottle EYEBOTH SCH (08:19)
[2016-12-14] MEDS: Nicotine 7 MG/24 Hr Patch TRDERM SCH (08:19)
[2016-12-14] MEDS ORDERED: Lisinopril 5 MG Tab PO SCH (09:00)
[2016-12-14] MEDS ORDERED: Aspirin 81 MG Tab.EC PO SCH (09:00)
[2016-12-14] MEDS ORDERED: Sodium Phosphate 3 mMole/ML 15 ML SDV IV ONE (09:30)
[2016-12-14] MEDS ORDERED: Glucose Gel 15 GM in 37.5 GM Tube PO PRN (09:34)
--- NOTE | 2016-12-14 09:40 | PCM.PN ---
- General Info Date of Service: 12/14/16 Functional Status: Reports: tolerating diet, ambulating, urinating - Review of Systems General: Denies: Fever, Chills Pulmonary: Reports: no symptoms Cardiovascular: Reports: No Symptoms Gastrointestinal: Reports: No symptoms Systems Review Comment:: Is patient has done very well since admission yesterday, ketoacidosis has resolved with use of IV insulin and IV fluids. Still has difficulty with low phosphorus but otherwise electrolytes and renal function have been good. Appetite seems to be improving she's had no further nausea or vomiting or diarrhea. - Patient Data Vitals - most recent: Last Vital Signs Temp 97.7 F 12/14/16 08:00 Pulse 65 12/14/16 07:00 Resp 17 12/14/16 09:00 BP 184/66 H 12/14/16 09:00 Pulse Ox 99 12/14/16 09:00 Weight - most recent: 122 lb I&O - last 24 hours: Intake & Output 12/13/16 12/14/16 12/14/16 22:59 06:59 14:59 Intake Total 1845 2030 Output Total 450 200 Balance 1395 1830 Lab Results last 24 hrs: Laboratory Results - last 24 hr 12/13/16 12/13/16 12/13/16 Range/Units 14:47 17:00 19:00 WBC (4.5-11.0) K/uL RBC (3.30-5.50) M/uL Hgb (12.0-15.0) g/dL Hct (36.0-48.0) % MCV (80-98) fL MCH (27-31) pg MCHC (32-36) % Plt Count (150-400) K/uL Neut % (Auto) (36-66) % Lymph % (Auto) (24-44) % Jenkins % (Auto) (2-6) % Eos % (Auto) (2-4) % Baso % (Auto) (0-1) % Sodium 131 L 133 L (140-148) mmol/L Potassium 4.9 3.6 4.1 (3.6-5.2) mmol/L Chloride 100 103 (100-108) mmol/L Carbon Dioxide 19 L 19 L (21-32) mmol/L Anion Gap 16.9 H 15.1 H (5.0-14.0) mmol/L BUN 14 12 (7-18) mg/dL Creatinine 0.9 1.1 H (0.6-1.0) mg/dL Est Cr Clr Drug Dosing 43.57 35.65 mL/min Estimated GFR (MDRD) > 60 50 L (>60) Glucose 287 H 192 H (74-106) mg/dL Calcium 7.3 L 7.5 L (8.5-10.1) mg/dL Phosphorus 2.8 (2.5-4.9) mg/dL Magnesium 1.6 L (1.8-2.4) mg/dL 12/13/16 12/13/16 12/14/16 Range/Units 21:00 23:00 00:49 WBC (4.5-11.0) K/uL RBC (3.30-5.50) M/uL Hgb (12.0-15.0) g/dL Hct (36.0-48.0) % MCV (80-98) fL MCH (27-31) pg MCHC (32-36) % Plt Count (150-400) K/uL Neut % (Auto) (36-66) % Lymph % (Auto) (24-44) % Jenkins % (Auto) (2-6) % Eos % (Auto) (2-4) % Baso % (Auto) (0-1) % Sodium 133 L (140-148) mmol/L Potassium 3.9 4.3 4.2 (3.6-5.2) mmol/L Chloride 103 (100-108) mmol/L Carbon Dioxide 22 (21-32) mmol/L Anion Gap 12.3 (5.0-14.0) mmol/L BUN 12 (7-18) mg/dL Creatinine 0.8 (0.6-1.0) mg/dL Est Cr Clr Drug Dosing 49.01 mL/min Estimated GFR (MDRD) > 60 (>60) Glucose 107 H (74-106) mg/dL Calcium 7.4 L (8.5-10.1) mg/dL Phosphorus 1.6 L (2.5-4.9) mg/dL Magnesium 2.1 (1.8-2.4) mg/dL 12/14/16 12/14/16 12/14/16 Range/Units 02:53 05:00 05:11 WBC 11.9 H (4.5-11.0) K/uL RBC 3.75 (3.30-5.50) M/uL Hgb 10.8 L D (12.0-15.0) g/dL Hct 32.3 L (36.0-48.0) % MCV 86 (80-98) fL MCH 29 (27-31) pg MCHC 33 (32-36) % Plt Count 325 (150-400) K/uL Neut % (Auto) 64 (36-66) % Lymph % (Auto) 24 (24-44) % Jenkins % (Auto) 10 H (2-6) % Eos % (Auto) 2 (2-4) % Baso % (Auto) 0 (0-1) % Sodium 136 L 136 L (140-148) mmol/L Potassium 4.4 4.1 (3.6-5.2) mmol/L Chloride 104 105 (100-108) mmol/L Carbon Dioxide 23 22 (21-32) mmol/L Anion Gap 13.4 13.1 (5.0-14.0) mmol/L BUN 9 4 L D (7-18) mg/dL Creatinine 0.7 0.7 (0.6-1.0) mg/dL Est Cr Clr Drug Dosing 56.02 56.02 mL/min Estimated GFR (MDRD) > 60 > 60 (>60) Glucose 101 148 H (74-106) mg/dL Calcium 7.2 L 7.1 L (8.5-10.1) mg/dL Phosphorus 1.8 L (2.5-4.9) mg/dL Magnesium 2.0 (1.8-2.4) mg/dL 12/14/16 12/14/16 Range/Units 07:03 08:47 WBC (4.5-11.0) K/uL RBC (3.30-5.50) M/uL Hgb (12.0-15.0) g/dL Hct (36.0-48.0) % MCV (80-98) fL MCH (27-31) pg MCHC (32-36) % Plt Count (150-400) K/uL Neut % (Auto) (36-66) % Lymph % (Auto) (24-44) % Jenkins % (Auto) (2-6) % Eos % (Auto) (2-4) % Baso % (Auto) (0-1) % Sodium 134 L (140-148) mmol/L Potassium 3.9 4.4 (3.6-5.2) mmol/L Chloride 102 (100-108) mmol/L Carbon Dioxide 22 (21-32) mmol/L Anion Gap 13.9 (5.0-14.0) mmol/L BUN 7 D (7-18) mg/dL Creatinine 0.8 (0.6-1.0) mg/dL Est Cr Clr Drug Dosing 49.01 mL/min Estimated GFR (MDRD) > 60 (>60) Glucose 154 H (74-106) mg/dL Calcium 7.3 L (8.5-10.1) mg/dL Phosphorus 1.5 L (2.5-4.9) mg/dL Magnesium 2.0 (1.8-2.4) mg/dL Med Orders - Current: Current Medications Acetaminophen (Tylenol) 650 mg PO Q4H PRN PRN Reason: Pain (Mild 1-3)/fever Aspirin (Halfprin) 81 mg PO DAILY [facility] Last Admin: 12/14/16 08:18 Dose: 81 mg Atorvastatin Calcium (Lipitor) 40 mg PO BEDTIME [facility] Last Admin: 12/13/16 20:48 Dose: 40 mg Dextrose/Water (Dextrose 50% In Water) 50 ml IVPUSH ONETIME PRN PRN Reason: Blood Glucose Last Admin: 12/13/16 22:06 Dose: 25 ml Enoxaparin Sodium (Lovenox) 40 mg SUBCUT Q24H [facility] Last Admin: 12/13/16 17:28 Dose: 40 mg Potassium Chloride 20 meq/ (Premix) 100 mls @ 50 mls/hr IV ASDIRECTED PRN PRN Reason: HYPOKALEMIA Ketotifen Fumarate (Ketotifen 0.025% Ophth Soln) 0 ml EYEBOTH BID [facility] Last Admin: 12/14/16 08:19 Dose: 1 drop Lisinopril (Prinivil) 5 mg PO DAILY [facility] Last Admin: 12/14/16 08:19 Dose: 5 mg Nicotine (Habitrol) 7 mg TRDERM DAILY [facility] Last Admin: 12/14/16 08:19 Dose: 7 mg Ondansetron HCl (Zofran) 4 mg IV Q4H PRN PRN Reason: Nausea/Vomiting Oxycodone HCl (Oxycodone) 5 mg PO Q4H PRN PRN Reason: Pain (moderate 4-6) Sodium Chloride (Saline Flush) 10 ml FLUSH ASDIRECTED PRN PRN Reason: Keep Vein Open Discontinued Medications Sodium Chloride (Normal Saline) 1,000 mls @ 999 mls/hr IV ASDIRECTED [facility] Last Admin: 12/13/16 09:32 Dose: 999 mls/hr Insulin Human Regular 100 unit (/ Sodium Chloride) 101 mls @ 4.04 mls/hr SUBCUT TITRATE ALICIA; 4 UNITS/HR PRN Reason: Protocol Last Titration: 12/13/16 13:38 Dose: 4 units/hr, 4.04 mls/hr Sodium Chloride (Normal Saline) 1,000 mls @ 500 mls/hr IV ASDIRECTED [facility] Last Admin: 12/13/16 11:44 Dose: 500 mls/hr Insulin Human Regular 100 unit (/ Sodium Chloride) 101 mls @ as directed IV .STK-MED ONE Stop: 12/13/16 11:52 Dextrose/Sodium Chloride (Dextrose 5%-1/2 Ns) 1,000 mls @ 150 mls/hr IV .CONTINUOUS PRN PRN Reason: Blood Glucose Last Admin: 12/14/16 06:27 Dose: 150 mls/hr Insulin Human Regular 100 unit (/ Sodium Chloride) 101 mls @ 6 mls/hr IV TITRATE ALICIA PRN Reason: Protocol Last Titration: 12/14/16 06:07 Dose: 3 unit/hr, 3.03 mls/hr Magnesium Sulfate (Magnesium Sulfate 2 Gm In Water 50 Ml) 50 mls @ 25 mls/hr IV ASDIRECTED PRN PRN Reason: low magnesium Last Admin: 12/13/16 16:08 Dose: 25 mls/hr Sodium Chloride (Normal Saline) 2,000 mls @ 500 mls/hr IV ASDIRECTED PRN PRN Reason: Blood Glucose Last Admin: 12/13/16 15:50 Dose: 250 mls/hr Sodium Phosphate 60 mmole/ (Sodium Chloride) 270 mls @ 62.5 mls/hr IV ASDIRECTED PRN PRN Reason: Low phophorus Ondansetron HCl (Zofran) 4 mg IVPUSH ONETIME ONE Stop: 12/13/16 09:19 Last Admin: 12/13/16 09:33 Dose: 4 mg Potassium Chloride (Potassium Chloride Solution) 20 meq PO ASDIRECTED PRN PRN Reason: Hypokalemia Last Admin: 12/14/16 07:40 Dose: 20 meq Potassium Chloride (Potassium Chloride Solution) 40 meq PO ASDIRECTED PRN PRN Reason: Hypokalemia Sodium Chloride (Saline Flush) 10 ml FLUSH ASDIRECTED PRN PRN Reason: Keep Vein Open Last Admin: 12/13/16 09:37 Dose: 10 ml - Exam Quality Assessment: DVT prophylaxis General: alert, oriented, cooperative Lungs: Clear to auscultation, Normal respiratory effort Cardiovascular: Regular Rate, Regular Rhythm, No Murmurs Abdomen: bowel sounds present, soft, no tenderness, no distension Extremities: no edema Skin: warm, dry, intact - Problem List Review Problem List Initiated/Reviewed/Updated: Yes - My Orders Last 24 Hours: My Active Orders 12/13/16 14:15 Resuscitation Status Routine 12/13/16 14:47 Diabetes Education [RC] Click to Edit Intake and Output [RC] QSHIFT Oxygen Therapy [RC] PRN Peripheral IV Care [RC] . DIRECTED Up With Assistance [RC] ASDIRECTED VTE/DVT Education [RC] Per Unit Routine Acetaminophen [Tylenol] 650 mg PO Q4H PRN Dextrose 50% in Water 50 ml IVPUSH ONETIME PRN Ondansetron [Zofran] 4 mg IV Q4H PRN Sodium Chloride 0.9% [Saline Flush] 10 ml FLUSH ASDIRECTED PRN oxyCODONE 5 mg PO Q4H PRN Peripheral IV Insertion Adult [OM.PC] Routine 12/13/16 15:30 Potassium Chloride [KCL 20 MEQ in Water 100 ML] 20 meq Premix Bag 1 bag IV ASDIRECTED 12/13/16 15:45 Nicotine [Habitrol] 7 mg TRDERM DAILY 12/13/16 17:00 Enoxaparin [Lovenox] 40 mg SUBCUT Q24H 12/13/16 21:00 Ketotifen [Ketotifen 0.025% Ophth Soln] 0 ml EYEBOTH BID atorvaSTATin [Lipitor] 40 mg PO BEDTIME 12/13/16 Lunch Consistent Carbohydrate Diet [DIET] 12/14/16 09:33 Vital Signs [RC] Q4H 12/14/16 09:34 Blood Glucose Check, Bedside [RC] QIDACANDBED Diabetes Education [RC] Click to Edit Notify Provider [RC] PRN Dextrose [Glutose 15] 15 gm PO ONETIME PRN May Take Own Home Medications [OM.PC] Routine 12/14/16 09:35 Communication Order [RC] ASDIRECTED 12/14/16 11:30 GLUCOSE POC LAB TO COLLECT [POC] QIDACANDBED 12/14/16 16:30 GLUCOSE POC LAB TO COLLECT [POC] QIDACANDBED 12/14/16 21:00 GLUCOSE POC LAB TO COLLECT [POC] QIDACANDBED 12/15/16 07:30 GLUCOSE POC LAB TO COLLECT [POC] QIDACANDBED 12/15/16 11:30 GLUCOSE POC LAB TO COLLECT [POC] QIDACANDBED 12/15/16 16:30 GLUCOSE POC LAB TO COLLECT [POC] QIDACANDBED 12/15/16 21:00 GLUCOSE POC LAB TO COLLECT [POC] QIDACANDBED 12/16/16 07:30 GLUCOSE POC LAB TO COLLECT [POC] QIDACANDBED - Plan Plan:: ASSESSMENT AND PLAN EARLY DIABETIC KETOACIDOSIS-ketoacidosis has resolved with current management -Resume use of insulin pump -4 times a day glucometers -Saline lock IV VIRAL GASTROENTERITIS-nausea vomiting with diarrhea had resolved -Saline lock IV -Antiemetic therapy as needed TYPE 1 DIABETES MELLITUS -Resume use of insulin pump MAINTENANCE ISSUES -DVT prophylaxis; Lovenox 40 mg subcutaneous daily -GI prophylaxis; not indicated -Estvees catheter; not indicated -Nutrition; consistent carb diet -Nicotine dependence; 14 mg nicotinic patch CODE STATUS-FULL CODE ADMISSION STATUS-patient will be admitted to inpatient status, expect at least a 2 night hospital stay for evaluation and management of problems as outlined above. At the time of this admission I do not reasonably expected evaluation and management of this problem will require more than a 96 hour hospital stay. DISPOSITION-anticipate discharge to home later today PRIMARY CARE PROVIDER-Dr. Thapa
[2016-12-14] MEDS ORDERED: SODIUM CHLORIDE IV SCH (10:30)
[2016-12-14] MEDS ORDERED: SODIUM PHOSPHATE IV SCH (10:30)
[2016-12-14] MEDS ORDERED: metFORMIN 500 MG Tab PO SCH (10:30)
[2016-12-14 11:03] VITALS: BP 168/72
--- NOTE | 2016-12-14 13:33 | PCM.DCSUM1 ---
Discharge Summary - Hospital Course Brief History: This patient is a 66-year-old woman with type 1 diabetes, who was admitted through the emergency department with diabetic ketoacidosis secondary to nausea, vomiting, and diarrhea. - Discharge Data Discharge Date: 12/14/16 Discharge Disposition: Home, Self-Care 01 Condition: Stable - Discharge Diagnosis/Problem(s) (1) Gastroenteritis SNOMED Code(s): 06896115 ICD Code: K52.9 - NONINFECTIVE GASTROENTERITIS AND COLITIS, UNSPECIFIED Status: Acute Current Visit: Yes (2) Diabetic ketoacidosis associated with type 1 diabetes mellitus SNOMED Code(s): 748022973, 354556212 ICD Code: E10.10 - TYPE 1 DIABETES MELLITUS WITH KETOACIDOSIS WITHOUT COMA Status: Acute Current Visit: Yes Qualifiers: Diabetes mellitus complication detail: without coma Qualified Code(s): E10.10 - Type 1 diabetes mellitus with ketoacidosis without coma - Patient Summary/Data Hospital Course: Ms. Skinner is a 66-year-old woman with known history of type 1 diabetes mellitus. For a few days prior to admission she developed nausea vomiting and diarrhea with progressive weakness. She came into the emergency department for evaluation, laboratory assessment she was found to have evidence of early diabetic ketoacidosis with an elevated anion gap and decrease in bicarbonate. PH at the time of initial assessment was within normal range. She was felt to have a probable viral gastroenteritis is the underlying etiology of her nausea vomiting and diarrhea. She was admitted to the hospital and started on continuous infusion of IV insulin as well as IV fluids for resuscitation. Laboratory tests including glucose level and electrolytes as well as renal function were monitored closely. Electrolytes were replaced as needed. By the following morning she was feeling significantly improved in the diabetic ketoacidosis had resolved. IV fluids as well as IV insulin infusion were discontinued and she was placed back on her usual insulin regimen using her insulin pump. She tolerated eating with no further nausea, vomiting, or diarrhea. She will be discharged home on her usual diabetic diet, eating softer foods. Activity will be as tolerated and she will continue her usual insulin regimen and monitoring. Followup appointment will be scheduled with her primary care provider Dr. Thapa within one week. - Patient Instructions Diet: Diabetic Diet, GI Soft/Low Residue/Low Fiber Activity: As Tolerated Other/Special Instructions: Please schedule a followup appointment with Dr. Thapa within one week - Discharge Plan Home Medications: Home Meds Aspirin [Halfprin] 81 mg PO DAILY 12/12/16 [History] Cholecalciferol (Vitamin D3) [Vitamin D3] 1,000 unit PO DAILY 12/12/16 [History] Insulin Aspart [NovoLOG] 100 unit SUBCUT ASDIRECTED 12/12/16 [History] Insulin Aspart [NovoLOG] 100 unit SUBCUT ASDIRECTED 12/12/16 [History] Lisinopril [Prinivil] 5 mg PO DAILY 12/12/16 [History] Olopatadine HCl [Patanol] 1 drop EYEBOTH BID 12/12/16 [History] Polyethylene Glycol 3350 [MiraLAX] 17 gm PO DAILY 12/12/16 [History] Ubidecarenone [Coenzyme Q-10] 200 mg PO DAILY 12/12/16 [History] atorvaSTATin [Lipitor] 40 mg PO BEDTIME 12/12/16 [History] metFORMIN [Glucophage] 1,000 mg PO BIDMEALS 12/12/16 [History] Referrals: Jose Thapa MD [Primary Care Provider] - - Patient Data Vitals - Most Recent: Last Vital Signs Temp 97.9 F 12/14/16 11:00 Pulse 65 12/14/16 07:00 Resp 18 12/14/16 11:00 BP 168/72 H 12/14/16 11:00 Pulse Ox 99 12/14/16 11:00 Weight - Most Recent: 122 lb I&O - Last 24 hours: Intake & Output 12/13/16 12/14/16 12/14/16 22:59 06:59 14:59 Intake Total 1845 2030 360 Output Total 450 200 Balance 1395 1830 360 Lab Results - Last 24 hrs: Laboratory Results - last 24 hr 12/13/16 12/13/16 12/13/16 Range/Units 14:47 17:00 19:00 WBC (4.5-11.0) K/uL RBC (3.30-5.50) M/uL Hgb (12.0-15.0) g/dL Hct (36.0-48.0) % MCV (80-98) fL MCH (27-31) pg MCHC (32-36) % Plt Count (150-400) K/uL Neut % (Auto) (36-66) % Lymph % (Auto) (24-44) % Campbell % (Auto) (2-6) % Eos % (Auto) (2-4) % Baso % (Auto) (0-1) % Sodium 131 L 133 L (140-148) mmol/L Potassium 4.9 3.6 4.1 (3.6-5.2) mmol/L Chloride 100 103 (100-108) mmol/L Carbon Dioxide 19 L 19 L (21-32) mmol/L Anion Gap 16.9 H 15.1 H (5.0-14.0) mmol/L BUN 14 12 (7-18) mg/dL Creatinine 0.9 1.1 H (0.6-1.0) mg/dL Est Cr Clr Drug Dosing 43.57 35.65 mL/min Estimated GFR (MDRD) > 60 50 L (>60) Glucose 287 H 192 H (74-106) mg/dL Calcium 7.3 L 7.5 L (8.5-10.1) mg/dL Phosphorus 2.8 (2.5-4.9) mg/dL Magnesium 1.6 L (1.8-2.4) mg/dL 12/13/16 12/13/16 12/14/16 Range/Units 21:00 23:00 00:49 WBC (4.5-11.0) K/uL RBC (3.30-5.50) M/uL Hgb (12.0-15.0) g/dL Hct (36.0-48.0) % MCV (80-98) fL MCH (27-31) pg MCHC (32-36) % Plt Count (150-400) K/uL Neut % (Auto) (36-66) % Lymph % (Auto) (24-44) % Campbell % (Auto) (2-6) % Eos % (Auto) (2-4) % Baso % (Auto) (0-1) % Sodium 133 L (140-148) mmol/L Potassium 3.9 4.3 4.2 (3.6-5.2) mmol/L Chloride 103 (100-108) mmol/L Carbon Dioxide 22 (21-32) mmol/L Anion Gap 12.3 (5.0-14.0) mmol/L BUN 12 (7-18) mg/dL Creatinine 0.8 (0.6-1.0) mg/dL Est Cr Clr Drug Dosing 49.01 mL/min Estimated GFR (MDRD) > 60 (>60) Glucose 107 H (74-106) mg/dL Calcium 7.4 L (8.5-10.1) mg/dL Phosphorus 1.6 L (2.5-4.9) mg/dL Magnesium 2.1 (1.8-2.4) mg/dL 12/14/16 12/14/16 12/14/16 Range/Units 02:53 05:00 05:11 WBC 11.9 H (4.5-11.0) K/uL RBC 3.75 (3.30-5.50) M/uL Hgb 10.8 L D (12.0-15.0) g/dL Hct 32.3 L (36.0-48.0) % MCV 86 (80-98) fL MCH 29 (27-31) pg MCHC 33 (32-36) % Plt Count 325 (150-400) K/uL Neut % (Auto) 64 (36-66) % Lymph % (Auto) 24 (24-44) % Campbell % (Auto) 10 H (2-6) % Eos % (Auto) 2 (2-4) % Baso % (Auto) 0 (0-1) % Sodium 136 L 136 L (140-148) mmol/L Potassium 4.4 4.1 (3.6-5.2) mmol/L Chloride 104 105 (100-108) mmol/L Carbon Dioxide 23 22 (21-32) mmol/L Anion Gap 13.4 13.1 (5.0-14.0) mmol/L BUN 9 4 L D (7-18) mg/dL Creatinine 0.7 0.7 (0.6-1.0) mg/dL Est Cr Clr Drug Dosing 56.02 56.02 mL/min Estimated GFR (MDRD) > 60 > 60 (>60) Glucose 101 148 H (74-106) mg/dL Calcium 7.2 L 7.1 L (8.5-10.1) mg/dL Phosphorus 1.8 L (2.5-4.9) mg/dL Magnesium 2.0 (1.8-2.4) mg/dL 12/14/16 12/14/16 Range/Units 07:03 08:47 WBC (4.5-11.0) K/uL RBC (3.30-5.50) M/uL Hgb (12.0-15.0) g/dL Hct (36.0-48.0) % MCV (80-98) fL MCH (27-31) pg MCHC (32-36) % Plt Count (150-400) K/uL Neut % (Auto) (36-66) % Lymph % (Auto) (24-44) % Campbell % (Auto) (2-6) % Eos % (Auto) (2-4) % Baso % (Auto) (0-1) % Sodium 134 L (140-148) mmol/L Potassium 3.9 4.4 (3.6-5.2) mmol/L Chloride 102 (100-108) mmol/L Carbon Dioxide 22 (21-32) mmol/L Anion Gap 13.9 (5.0-14.0) mmol/L BUN 7 D (7-18) mg/dL Creatinine 0.8 (0.6-1.0) mg/dL Est Cr Clr Drug Dosing 49.01 mL/min Estimated GFR (MDRD) > 60 (>60) Glucose 154 H (74-106) mg/dL Calcium 7.3 L (8.5-10.1) mg/dL Phosphorus 1.5 L (2.5-4.9) mg/dL Magnesium 2.0 (1.8-2.4) mg/dL Med Orders - Current: Current Medications Acetaminophen (Tylenol) 650 mg PO Q4H PRN PRN Reason: Pain (Mild 1-3)/fever Aspirin (Halfprin) 81 mg PO DAILY [facility] Last Admin: 12/14/16 08:18 Dose: 81 mg Atorvastatin Calcium (Lipitor) 40 mg PO BEDTIME [facility] Last Admin: 12/13/16 20:48 Dose: 40 mg Dextrose (Glutose 15) 15 gm PO ONETIME PRN PRN Reason: Hypoglycemia Dextrose/Water (Dextrose 50% In Water) 50 ml IVPUSH ONETIME PRN PRN Reason: Blood Glucose Last Admin: 12/13/16 22:06 Dose: 25 ml Enoxaparin Sodium (Lovenox) 40 mg SUBCUT Q24H [facility] Last Admin: 12/13/16 17:28 Dose: 40 mg Potassium Chloride 20 meq/ (Premix) 100 mls @ 50 mls/hr IV ASDIRECTED PRN PRN Reason: HYPOKALEMIA Sodium Phosphate 22 mmole/ (Sodium Chloride) 257.3333 mls @ 86 mls/hr IV Q3H [facility] Stop: 12/14/16 19:29 Last Admin: 12/14/16 10:46 Dose: 86 mls/hr Ketotifen Fumarate (Ketotifen 0.025% Ophth Soln) 0 ml EYEBOTH BID [facility] Last Admin: 12/14/16 08:19 Dose: 1 drop Lisinopril (Prinivil) 5 mg PO DAILY [facility] Last Admin: 12/14/16 08:19 Dose: 5 mg Metformin HCl (Glucophage) 1,000 mg PO BIDMEALS [facility] Last Admin: 12/14/16 10:45 Dose: 1,000 mg Nicotine (Habitrol) 7 mg TRDERM DAILY [facility] Last Admin: 12/14/16 08:19 Dose: 7 mg Ondansetron HCl (Zofran) 4 mg IV Q4H PRN PRN Reason: Nausea/Vomiting Oxycodone HCl (Oxycodone) 5 mg PO Q4H PRN PRN Reason: Pain (moderate 4-6) Sodium Chloride (Saline Flush) 10 ml FLUSH ASDIRECTED PRN PRN Reason: Keep Vein Open Discontinued Medications Sodium Chloride (Normal Saline) 1,000 mls @ 999 mls/hr IV ASDIRECTED [facility] Last Admin: 12/13/16 09:32 Dose: 999 mls/hr Insulin Human Regular 100 unit (/ Sodium Chloride) 101 mls @ 4.04 mls/hr SUBCUT TITRATE [facility]; 4 UNITS/HR PRN Reason: Protocol Last Titration: 12/13/16 13:38 Dose: 4 units/hr, 4.04 mls/hr Sodium Chloride (Normal Saline) 1,000 mls @ 500 mls/hr IV ASDIRECTED [facility] Last Admin: 12/13/16 11:44 Dose: 500 mls/hr Insulin Human Regular 100 unit (/ Sodium Chloride) 101 mls @ as directed IV .STK-MED ONE Stop: 12/13/16 11:52 Dextrose/Sodium Chloride (Dextrose 5%-1/2 Ns) 1,000 mls @ 150 mls/hr IV .CONTINUOUS PRN PRN Reason: Blood Glucose Last Admin: 12/14/16 06:27 Dose: 150 mls/hr Insulin Human Regular 100 unit (/ Sodium Chloride) 101 mls @ 6 mls/hr IV TITRATE [facility] PRN Reason: Protocol Last Titration: 12/14/16 06:07 Dose: 3 unit/hr, 3.03 mls/hr Magnesium Sulfate (Magnesium Sulfate 2 Gm In Water 50 Ml) 50 mls @ 25 mls/hr IV ASDIRECTED PRN PRN Reason: low magnesium Last Admin: 12/13/16 16:08 Dose: 25 mls/hr Sodium Chloride (Normal Saline) 2,000 mls @ 500 mls/hr IV ASDIRECTED PRN PRN Reason: Blood Glucose Last Admin: 12/13/16 15:50 Dose: 250 mls/hr Sodium Phosphate 60 mmole/ (Sodium Chloride) 270 mls @ 62.5 mls/hr IV ASDIRECTED PRN PRN Reason: Low phophorus Ondansetron HCl (Zofran) 4 mg IVPUSH ONETIME ONE Stop: 12/13/16 09:19 Last Admin: 12/13/16 09:33 Dose: 4 mg Potassium Chloride (Potassium Chloride Solution) 20 meq PO ASDIRECTED PRN PRN Reason: Hypokalemia Last Admin: 12/14/16 07:40 Dose: 20 meq Potassium Chloride (Potassium Chloride Solution) 40 meq PO ASDIRECTED PRN PRN Reason: Hypokalemia Sodium Chloride (Saline Flush) 10 ml FLUSH ASDIRECTED PRN PRN Reason: Keep Vein Open Last Admin: 12/13/16 09:37 Dose: 10 ml *Q Meaningful Use (DIS) - VTE *Q VTE Criteria *Q: - Stroke *Q Stroke Criteria *Q: - AMI *Q AMI Criteria *Q:
== END 2016-12-14 14:26 | disposition home or self-care (01) | DRG 391 ==
LOC: JP.ED 08:22 → JP.ICU 14:12
PROVIDERS: ADMIT Hospitalist; ATTEND Hospitalist
DX: A08.4 Viral intestinal infection, unspecified (principal); E10.10 Type 1 diabetes mellitus with ketoacidosis without coma; Z79.4 Long term (current) use of insulin; Z96.41 Presence of insulin pump (external) (internal); E03.9 Hypothyroidism, unspecified; F17.210 Nicotine dependence, cigarettes, uncomplicated; R11.2 Nausea with vomiting, unspecified; R19.7 Diarrhea, unspecified; E78.00 Pure hypercholesterolemia, unspecified; Z85.3 Personal history of malignant neoplasm of breast; Z85.42 Personal history of malignant neoplasm of other parts of uterus; H54.7 Unspecified visual loss; H91.90 Unspecified hearing loss, unspecified ear; Z79.82 Long term (current) use of aspirin; Z88.1 Allergy status to other antibiotic agents; Z88.0 Allergy status to penicillin; Z88.2 Allergy status to sulfonamides; Z88.8 Allergy status to other drugs, medicaments and biological substances
CPT/HCPCS: 36415; 36600; 71020 ×2; 80048; 80053; 81001; 82009; 82803; 83605; 83690; 85025; 87040 ×2; 96361; 96374; 99285; A9270; J2405; J7040 ×2; J7050; 82962; 83735; 84100; 84132; J1650; J3475

== ENCOUNTER 2021-09-18 07:57 | Day surgery (SDC) | payer MEDICARE, BC ==
[~2021-09-18 07:57] MED LIST: Lidocaine 2% Jelly 30 ML Tube ONE; Lidocaine 2% Viscous Solution 15 ML UD ONE; Lidocaine 4% Top Soln 50 ML Bottle ONE
[2021-09-18] MEDS ORDERED: Albuterol/Ipratropium 3.0-0.5 MG/3 ML Neb Soln NEB ONE (08:30)
[2021-09-18] MEDS ORDERED: Dextrose 5%-Lactated Ringers 1,000 ML IV SCH (08:30)
[2021-09-18] MEDS ORDERED: Glycopyrrolate 0.2 MG/ML 2 ML SDV IVPUSH ONE (09:15)
[2021-09-18] MEDS ORDERED: Propofol 200 MG/20 ML SDV ONE (09:22)
[2021-09-18] MEDS ORDERED: fentaNYL 100 MCG/2 ML SDV ONE (09:22)
[2021-09-18] MEDS ORDERED: Midazolam 1 MG/ML 2 ML SDV ONE (09:22)
[2021-09-18 12:24] VITALS: BP 169/76; PULSE 100
[2021-09-18] MEDS ORDERED: Insulin Glargine,Human Rec. Analog 100 Units/ML 3 ML Pen SUBCUT ONE (12:45)
[2021-09-18] MEDS ORDERED: Insulin Lispro 100 Unit/ML 3 ML KwikPen SUBCUT ONE (12:45)
== END 2021-09-18 13:53 | disposition home or self-care (01) ==
LOC: JP.SDS 07:57
PROVIDERS: ATTEND Surgery
DX: C34.12 Malignant neoplasm of upper lobe, left bronchus or lung (principal); J98.09 Other diseases of bronchus, not elsewhere classified; F17.200 Nicotine dependence, unspecified, uncomplicated; I10 Essential (primary) hypertension; E11.9 Type 2 diabetes mellitus without complications
CPT/HCPCS: 82947; 87015; 87070; 87102; 87116; 87205; 87206; 87220; 88112; 88305; 88341; 88342; 94640; A9270-GY; J1815; J1815-GY; J2250; J2704; J3010; J3490; J7121; J7620-GY

== ENCOUNTER 2021-12-31 10:14 | Emergency (ER) | payer MEDICARE, BC ==
[2021-12-31] MEDS ORDERED: Ibuprofen 600 MG Tab PO ONE (11:11)
[2021-12-31] MEDS ORDERED: Sodium Chloride 0.9% 10 ML Syringe FLUSH PRN (11:12)
[2021-12-31] MEDS ORDERED: Sodium Chloride 0.9% 1,000 ML IV SCH (11:15)
[2021-12-31] MEDS ORDERED: Sodium Chloride 0.9% 100 ML IV SCH ×2 (11:30→11:45)
[2021-12-31] MEDS ORDERED: Iopamidol 755 Mg/ML 100 ML Bottle IV SCH (11:30)
[2021-12-31] MEDS ORDERED: Iopamidol 612 MG/ML 100 ML Bottle IV PRN (11:36)
[2021-12-31 11:57] LABS: ESTIMATED GFR > 60 (>60); TROPONIN I HIGH SENSITIVITY 11.1 pg/mL (<=60.3)
[2021-12-31 13:05] VITALS: BP 162/89; PULSE 100
== END 2021-12-31 13:42 | disposition home or self-care (01) ==
LOC: JP.ED 10:14
DX: R20.2 Paresthesia of skin (principal); E78.00 Pure hypercholesterolemia, unspecified; E03.9 Hypothyroidism, unspecified; I10 Essential (primary) hypertension; E10.9 Type 1 diabetes mellitus without complications; Z90.710 Acquired absence of both cervix and uterus; Z79.899 Other long term (current) drug therapy; Z79.82 Long term (current) use of aspirin; Z79.4 Long term (current) use of insulin; Z88.1 Allergy status to other antibiotic agents; Z88.0 Allergy status to penicillin; Z88.2 Allergy status to sulfonamides; Z88.8 Allergy status to other drugs, medicaments and biological substances; Z90.49 Acquired absence of other specified parts of digestive tract
CPT/HCPCS: 36415; 70450; 70450-26; 70496; 70496-26; 70498; 70498-26; 80053; 84484; 85025; 96360; 96361; 99283; 99284-25; A9270-GY; C1751; J1642; J3490; J7030; Q9967

== ENCOUNTER 2025-06-25 14:38 | Emergency (ER) | payer MEDICARE, BC ==
[2025-06-25] MEDS: fentaNYL 50 MCG/ML SDV IVPUSH ONE (15:44)
[2025-06-25 16:18] LABS: BASOPHILS ABSOLUTE AUTO 0.07 K/uL (0.00-0.10); BASOPHILS PERCENT AUTO 0.4 % (0.1-1.3); EOSINOPHILS ABSOLUTE AUTO 0.08 K/uL (0.00-0.40); EOSINOPHILS PERCENT AUTO 0.5 % (0.0-5.4); IMMATURE GRAN ABSOLUTE AUTO 0.16 K/uL (0.00-0.23); IMMATURE GRAN PERCENT AUTO 0.9 % (0.0-0.7); LYMPHOCYTES ABSOLUTE AUTO 0.75 K/uL (0.8-3.3); LYMPHOCYTES PERCENT AUTO 4.3 % (11.4-47.7); MONOCYTES ABSOLUTE AUTO 1.20 K/uL (0.20-0.90); MONOCYTES PERCENT AUTO 6.9 % (3.3-12.6); NEUTROPHILS ABSOLUTE AUTO 15.16 K/uL (1.0-7.6); NEUTROPHILS PERCENT AUTO 87.0 % (40.0-78.1); PLATELET COUNT,PLT 411 K/uL (130-375); RED BLOOD CELL COUNT 4.74 M/uL (3.77-5.24); WHITE BLOOD CELL COUNT,WBC 17.4 K/uL (3.2-11.0)
[2025-06-25 16:35] LABS: INR 1.0
[2025-06-25 16:38] LABS: A/G RATIO 0.9 (1.2-2.2); ALANINE AMINOTRANSFERASE,ALT 26 U/L (12-78); ASPARTATE AMNIOTRANSFERASE,AST 22 U/L (15-37); BILIRUBIN TOTAL 0.5 mg/dL (0.2-1.0); BLOOD UREA NITROGEN,BUN 18 mg/dL (7-18); CARBON DIOXIDE,CO2 26 mmol/L (21-32); CHLORIDE,CL 92 mmol/L (100-108); CREATININE 0.6 mg/dL (0.6-1.0); EST CRCL DRUG DOSING (CG) 51.05 mL/min; ESTIMATED GFR 94 mL/min (>60); GLUCOSE RANDOM 235 mg/dL (74-106); PHOSPHORUS 2.1 mg/dL (2.5-4.9); POTASSIUM,K 3.7 mmol/L (3.6-5.2); PROTEIN TOTAL,TP 6.8 g/dL (6.4-8.2); SODIUM,NA 127 mmol/L (140-148)
[2025-06-25 16:43] LABS: APPEARANCE,URINE CLOUDY (CLEAR); GLUCOSE,URINE NEGATIVE (NEGATIVE); OCCULT BLOOD,URINE TRACE-LYSED (NEGATIVE)
[2025-06-25 16:57] LABS: SQUAMOUS EPITHELIAL CELLS,UR MANY /HPF; UROTHELIAL CELLS,URINE NOT SEEN /HPF
[2025-06-25] MEDS: LORazepam 2 MG/ML SDV IVPUSH ONE (17:01)
[2025-06-25] MEDS ORDERED: Naloxone 0.4 MG/ML SDV IVPUSH PRN (20:01)
[2025-06-25] MEDS ORDERED: Ondansetron 4 MG/2 ML SDV IVPUSH PRN (20:01)
[2025-06-25] MEDS: Magnesium Sulfate 2 GM/50 mL 2 GM in Premix Bag 1 BAG IV ONE (20:23)
[2025-06-25 22:28] VITALS: BP 194/81; PULSE 85
== END 2025-06-25 23:21 ==
LOC: JP.ED 14:38
DX: S72.141A Displaced intertrochanteric fracture of right femur, initial encounter for closed fracture (principal); E83.42 Hypomagnesemia; E87.1 Hypo-osmolality and hyponatremia; E83.39 Other disorders of phosphorus metabolism; I10 Essential (primary) hypertension; E78.00 Pure hypercholesterolemia, unspecified; E10.9 Type 1 diabetes mellitus without complications; E03.9 Hypothyroidism, unspecified; Z79.899 Other long term (current) drug therapy; Z79.4 Long term (current) use of insulin; Z88.0 Allergy status to penicillin; Z88.8 Allergy status to other drugs, medicaments and biological substances; Z88.2 Allergy status to sulfonamides; Z88.1 Allergy status to other antibiotic agents; Z90.49 Acquired absence of other specified parts of digestive tract; Z90.710 Acquired absence of both cervix and uterus; W19.XXXA Unspecified fall, initial encounter
CPT/HCPCS: 36415; 70450; 71045; 72125; 73502; 76377; 80053; 81001; 83735; 84100; 85025; 85610; 87086; 93005; 96361; 96365; 96366; 96375; 99285; J1171; J2060; J3010; J3475; J7030; 93010